=== PATIENT | male | born 1995 | race African-American/Black ===

== ENCOUNTER 2017-04-06 18:54 | Emergency (ER) | payer BC ==
[~2017-04-06] VITALS: Ht 182.9 cm; Wt 87.0 kg
[2017-04-06] MEDS ORDERED: ACETAMINOPHEN 500MG TABLET PO ONE (23:00)
[2017-04-07 00:25] VITALS: BP 110/68
== END 2017-04-07 00:30 | disposition home or self-care (01) ==
LOC: ER 21:53
DX: M54.5 Low back pain (principal); V49.49XA Driver injured in collision with other motor vehicles in traffic accident, initial encounter; Y93.89 Activity, other specified; Y92.410 Unspecified street and highway as the place of occurrence of the external cause
CPT/HCPCS: 99282